=== PATIENT | male | born 1955 | race Hispanic/Latino ===

== ENCOUNTER → 2019-01-30 | Outpatient (CLI) | payer OTHER | END | disposition home or self-care (01) | LOC: SHCH 09:01 | PROVIDERS: ATTEND Internal Medicine Cardiovascular Disease | DX: I10 Essential (primary) hypertension (principal) | CPT/HCPCS: 93306 ==

== ENCOUNTER → 2019-03-20 | Outpatient (CLI) | payer OTHER ==
[~2019-03-20] VITALS: Ht 157.5 cm; Wt 77.1 kg
[~2019-03-20] MED LIST: REGADENOSON 0.4 MG/5 ML PF SYG IVP SCH
== END | disposition home or self-care (01) ==
LOC: SHCH 07:59
PROVIDERS: ATTEND Internal Medicine Cardiovascular Disease
DX: I24.0 Acute coronary thrombosis not resulting in myocardial infarction (principal)
CPT/HCPCS: 78452; 93017; 96374; A9500 ×2; J2785

== ENCOUNTER 2019-04-22 07:39 | Day surgery (SDC) | payer OTHER ==
[2019-04-17 16:02] VITALS: BP 126/70
[2019-04-17 16:21] LABS: APPEARANCE,URINE Clear (CLEAR); BILIRUBIN,URINE Negative (NEGATIVE); COLOR,URINE Yellow (YELLOW); GLUCOSE, URINE (UA) Negative (NEGATIVE); KETONES,URINE Negative (NEGATIVE); LEUKOCYTE ESTERASE ,URINE Negative (NEGATIVE); NITRATE,URINE Negative (NEGATIVE); OCCULT BLOOD,URINE Negative (NEGATIVE); PROTEIN,URINE POS 1+ mg/dL (NEGATIVE)
[2019-04-17 16:23] LABS: BASOPHILS % (AUTO) 1.1 % (0.0-5.0); HEMATOCRIT 40.7 % (42-54); LYMPHOCYTES % (AUTO) 41.5 % (21.0-51.0); MEAN CORPUSCULAR HGB CONC 34.2 g/dL (32.0-36.0); MEAN CORPUSCULAR VOLUME 90.6 fL (79-99); MONOCYTES % (AUTO) 10.7 % (3.0-13.0); NEUTROPHILS % (AUTO) 44.7 % (40.0-77.0); NUCLEATED RED BLOOD CELLS 0.1 % (0.0-0.19); PLATELET COUNT (AUTO) 181 K/uL (130-400); RED CELL DISTRIBUTION WIDTH 13.9 % (11.0-15.5)
[2019-04-17 16:36] LABS: PARTIAL THROMBOPLASTIN TIME 27.3 SEC (26.3-35.5); PROTHROMBIN TIME 10.5 SEC (9.6-11.6)
[2019-04-17 16:37] LABS: CREATININE 1.1 mg/dL (0.5-1.5)
[2019-04-17 16:54] LABS: BACTERIA,URINE Rare /HPF (None Seen); MUCUS,URINE Few LPF (None Seen); RBC,URINE 0-1 /HPF (0-1); SQUAMOUS EPITHELIAL CELL,UR 0-2 /HPF (0-2); WBC,URINE 0-1 /HPF (0-1)
[2019-04-22] VITALS (8 sets, daily range): BP systolic 117–139; BP diastolic 66–80
[~2019-04-22] VITALS: Ht 163.8 cm; Wt 76.9 kg
[~2019-04-22 07:39] MED LIST changes: +AMLO5TAB9 PO; +AMOX500T2 PO; +ASPI-1197 PO; +CLAR500T PO; +LISI-613 PO; +METF-444 PO; +METF-446 PO; +METO-408 PO; +OMEP40CA13 PO; -REGADENOSON 0.4 MG/5 ML PF SYG IVP SCH
--- NOTE | 2019-04-22 07:45 | NUR ---
PATIENT ARRIVED PATIENT ARRIVED TO DAY PATIENT ACCOMPANIED BY DAUGHTER, PATIENT AAOX3, RESPIRATIONS UNLABORED, VITAL SIGNS STABLE, DENIES ANY PAIN AT THIS TIME. PROCEDURE VERIFIED AND CONFIRMED WITH PATIENT. ALL QUESTIONS/CONCERNS ADDRESSED. HOSPITAL ROUTINE EXPLAINED TO PATIENT AND PATIENT VERBALIZED UNDERSTANDING. SIDE RAILS UPX2, CALL FOX IN REACH, BED IN LOWEST POSITION.
--- NOTE | 2019-04-22 08:30 | NUR ---
patient walked to bathroom and felt a bit unsteady. patient assisted back to his bed and complained of feeling nauseous/dizzy. patient started to dry heave but did not have any emesis. patient then stated he felt better afterwards. patient states that he only slept from 3:30am-6:00am therefore he says he feels very tired and dizzy because he did not get enough sleep. will continue to monitor patient.
[2019-04-22] MEDS ORDERED: ASCO500C18 PO (08:31)
[2019-04-22] MEDS ORDERED: vitamin e PO (08:31)
--- NOTE | 2019-04-22 09:05 | NUR ---
patient walked to bathroom and was steady. he was able to walk back to his bed unassisted. once patient laid in bed he asked for emesis bag and began to dry heave but he did not have any emesis. after dry heaving patient stated that he felt better, denied and feeling of dizziness.
[2019-04-22] MEDS ORDERED: SODIUM CHLORIDE 0.9% 1000ML 1,000 ML IV ONE (09:24)
--- NOTE | 2019-04-22 09:30 | NUR ---
INFORMED DR HAMMOND THAT PATIENT HAD TWO OCCURRENCES OF DRY HEAVING AFTER HE WALKED TO THE BATHROOM AND RETURNED BACK TO HIS BED. TOLD HIM THAT PATIENT DRY HEAVED BUT DID NOT HAVE ANY EMESIS AND ALSO INFORMED HIM THAT THE PATIENT ONLY SLEPT TWO AND A HALF HOURS LAST NIGHT BECAUSE HE WORKED LAST NIGHT. PER DR HAMMOND, CONTINUE TO MONITOR AND CALL MARGARITA GRAMAJO IF IT OCCURS AGAIN.
[2019-04-22] MEDS ORDERED: BIVALIRUDIN 250 MG/VIAL IV ONE (11:40)
[2019-04-22] MEDS ORDERED: HEPARIN SODIUM 1000UNIT/ML 10ML VIAL ONE (11:40)
[2019-04-22] MEDS ORDERED: VERAPAMIL HCL 2.5 MG/ML VIAL ONE (11:40)
[2019-04-22] MEDS ORDERED: NITROGLYCERIN 5 MG/ML 10 ML VIAL IV ONE (11:41)
[2019-04-22] MEDS ORDERED: IOHEXOL-350 75 ML VIAL IV ONE (11:41)
[2019-04-22] MEDS ORDERED: IOHEXOL 350 MG/ML 100ML INFUS..BTL IV ONE (11:41)
[2019-04-22] MEDS ORDERED: IOHEXOL-350 50ML VIAL IV ONE ×2 (11:41→12:28)
[2019-04-22] MEDS ORDERED: MIDAZOLAM HCL 1 MG/ML 2ML VIAL ONE (11:41)
[2019-04-22] MEDS ORDERED: FENTANYL CITRATE PF 50 MCG/1 ML 2ML VIAL ONE (11:42)
[2019-04-22] MEDS ORDERED: LIDOCAINE HCL 2% 20ML ONE (11:42)
[2019-04-22] MEDS ORDERED: ATROPINE SULFATE 0.1 MG/ML 10 ML SYG IVP ONE (12:26)
[2019-04-22] MEDS ORDERED: SODIUM CHLORIDE 0.9% 1000ML 1,000 ML IV SCH (12:52)
[2019-04-22] MEDS ORDERED: DEXTROSE 50%-WATER 50 ML DISP.SYRIN IV PRN (13:00)
[2019-04-22] MEDS ORDERED: GLUCAGON 1MG KIT 1 MG ML IM PRN (13:00)
--- NOTE | 2019-04-22 13:10 | NUR ---
SITE CHECK RIGHT WRIST WITH TR BAND IN PLACE, NO DRAINAGE/BLEEDING NOTED. NO HEMATOMA NOTED. RADIAL PULSES STRONG BILATERALLY.
--- NOTE | 2019-04-22 13:10 | NUR ---
PATIENT RETURNED PATIENT BROUGHT BACK FROM MALE IMPERSONATOR VIA BED BY YAZMIN LIMON. PATIENT AAOX3, RESPIRATIONS UNLABORED, VITAL SIGNS STABLE, DENIES ANY PAIN. TR BAND IN PLACE TO RIGHT WRIST, RADIAL PULSES PRESENT BILATERALLY. NO BLEEDING NOTED TO TR BAND SITE, NO DRAINAGE NOTED. AREA DRY AND INTACT. PATIENT INSTRUCTED TO KEEP WRIST STRAIGHT AND NOT TO BED OR FLEX RIGHT ARM/WRIST, PT VERBALIZED UNDERSTANDING. FAMILY MEMBERS AT BEDSIDE.
--- NOTE | 2019-04-22 13:25 | NUR ---
SITE CHECK RIGHT WRIST WITH TR BAND IN PLACE, NO DRAINAGE/BLEEDING NOTED. NO HEMATOMA NOTED. RADIAL PULSES STRONG BILATERALLY.
--- NOTE | 2019-04-22 13:40 | NUR ---
SITE CHECK RIGHT WRIST WITH TR BAND IN PLACE, NO DRAINAGE/BLEEDING NOTED. NO HEMATOMA NOTED. RADIAL PULSES STRONG BILATERALLY.
--- NOTE | 2019-04-22 13:45 | NUR ---
2 ML AIR REMOVED FROM TR BAND, NO BLEEDING OR DRAINAGE NOTED TO RIGHT RADIAL SITE. RADIAL PULSES STRONG BILATERALLY.
--- NOTE | 2019-04-22 13:55 | NUR ---
SITE CHECK RIGHT WRIST WITH TR BAND IN PLACE, NO DRAINAGE/BLEEDING NOTED. NO HEMATOMA NOTED. RADIAL PULSES STRONG BILATERALLY.
--- NOTE | 2019-04-22 14:05 | NUR ---
2 ML AIR REMOVED FROM TR BAND, NO BLEEDING OR DRAINAGE NOTED TO RIGHT RADIAL SITE. RADIAL PULSES STRONG BILATERALLY.
--- NOTE | 2019-04-22 14:25 | NUR ---
SITE CHECK RIGHT WRIST WITH TR BAND IN PLACE, NO DRAINAGE/BLEEDING NOTED. NO HEMATOMA NOTED. RADIAL PULSES STRONG BILATERALLY.
--- NOTE | 2019-04-22 14:25 | NUR ---
2 ML AIR REMOVED FROM TR BAND, NO BLEEDING OR DRAINAGE NOTED TO RIGHT RADIAL SITE. RADIAL PULSES STRONG BILATERALLY.
--- NOTE | 2019-04-22 14:40 | NUR ---
2 ML AIR REMOVED FROM TR BAND, NO BLEEDING OR DRAINAGE NOTED TO RIGHT RADIAL SITE. RADIAL PULSES STRONG BILATERALLY.
--- NOTE | 2019-04-22 14:55 | NUR ---
2 ML AIR REMOVED FROM TR BAND, NO BLEEDING OR DRAINAGE NOTED TO RIGHT RADIAL SITE. RADIAL PULSES STRONG BILATERALLY.
--- NOTE | 2019-04-22 15:20 | NUR ---
2 ML AIR REMOVED FROM TR BAND, NO BLEEDING OR DRAINAGE NOTED TO RIGHT RADIAL SITE. RADIAL PULSES STRONG BILATERALLY.
--- NOTE | 2019-04-22 15:35 | NUR ---
2 ML AIR REMOVED FROM TR BAND, NO BLEEDING OR DRAINAGE NOTED TO RIGHT RADIAL SITE. RADIAL PULSES STRONG BILATERALLY.
--- NOTE | 2019-04-22 15:35 | NUR ---
2 ML OF AIR REMOVED FROM TR BAND. ALL AIR COMPLETELY REMOVED FROM TR BAND AT THIS TIME, NO BLEEDING NOTED. TR BAND REMOVED AND STERILE DRESSING APPLIED. NO SWELLING, NO HEMATOMA, NO BLEEDING/DRAINAGE NOTED.
--- NOTE | 2019-04-22 15:44 | NUR ---
DISCHARGE INSTRUCTIONS PATIENT'S PROVIDED WITH DISCHARGE INSTRUCTIONS AND FOLLOW UP APPOINTMENT AND NEW PRESCRIPTIONS. HANDOUTS PROVIDED ON RADIAL SITE CARE AND ANGIOGRAM AFTER CARE INSTRUCTIONS. ALL QUESTIONS/CONCERNS ADDRESSED.
--- NOTE | 2019-04-22 16:20 | NUR ---
RADIAL SITE WITH BANDAID IN PLACE, NO BLEEDING/DRAINAGE NOTED. NO SWELLING OR HEMATOMA. PATIENT DISCHARGED FROM FACILITY VIA WHEELCHAIR AND PATIENT WAS ABLE TO TRANSFER HIMSELF INTO PRIVATE VEHICLE DRIVEN BY DAUGHTER.
== END 2019-04-22 16:20 | disposition home or self-care (01) ==
LOC: DAH 07:39
PROVIDERS: ATTEND Internal Medicine Cardiovascular Disease
DX: R94.39 Abnormal result of other cardiovascular function study (principal); I25.10 Atherosclerotic heart disease of native coronary artery without angina pectoris; E78.2 Mixed hyperlipidemia; I10 Essential (primary) hypertension; E11.9 Type 2 diabetes mellitus without complications; Z79.84 Long term (current) use of oral hypoglycemic drugs; Z79.01 Long term (current) use of anticoagulants; Z79.899 Other long term (current) drug therapy; Z98.890 Other specified postprocedural states
CPT/HCPCS: 36415; 71045; 80048; 81001; 82948 ×2; 85025; 85610; 85730; 93005; 93458; A4215; A4216; A4221; A4222; A4223 ×3; A4606; C1769; C1894; J1644 ×2; J2250; J3010; J3490 ×3; J7030; Q9965; Q9967 ×3; 99156; 99157; J0461; J0583